=== PATIENT | male | born 1955 | race Caucasian/White ===

== ENCOUNTER → 2024-10-04 16:03 | Outpatient (REF) | payer MEDICARE, BC, SELFPAY | LOC: CLAB 16:03 | PROVIDERS: ATTENDING PHYSICIAN Surgery | DX: R97.20 Elevated prostate specific antigen [PSA] (principal) | CPT/HCPCS: 88305 ==

== ENCOUNTER 2024-12-04 06:26 | Day surgery (SDC) | payer MEDICARE, BC, SELFPAY | END 2024-12-04 10:08 | disposition home or self-care (01) | LOC: GI 06:26 | PROVIDERS: ATTENDING PHYSICIAN Internal Medicine | DX: Z12.11 Encounter for screening for malignant neoplasm of colon (principal); D12.3 Benign neoplasm of transverse colon; K63.5 Polyp of colon | CPT/HCPCS: 45385; 45380; 88305 ==

== ENCOUNTER → 2025-05-09 07:36 | Outpatient (REF) | payer MEDICARE, BC, OTHER, SELFPAY ==
[2025-05-09 09:41] LABS: PSA, Total - Screen 0.20 ng/ml (0.0-4.0)
== END ==
LOC: RAD 07:36
PROVIDERS: ATTENDING PHYSICIAN Family Medicine Geriatric Medicine; FAMILY PHYSICIAN Hospitalist
DX: M19.011 Primary osteoarthritis, right shoulder (principal); M19.012 Primary osteoarthritis, left shoulder; Z12.5 Encounter for screening for malignant neoplasm of prostate
CPT/HCPCS: 36415; 73030; G0103

== ENCOUNTER → 2025-09-15 08:47 | Outpatient (REF) | payer MEDICARE, BC, OTHER, SELFPAY ==
[2025-09-15 10:37] LABS: PSA, Total - Diagnostic < 0.06 ng/ml (0.0-4.0)
== END ==
LOC: REG 08:47
PROVIDERS: ATTENDING PHYSICIAN Family Medicine Geriatric Medicine
DX: Z12.5 Encounter for screening for malignant neoplasm of prostate (principal); Z85.46 Personal history of malignant neoplasm of prostate
CPT/HCPCS: 36415; 84153